=== PATIENT | female | born 1975 | race African-American/Black ===

== ENCOUNTER 2019-02-19 15:58 | Emergency (ER) | payer OTHER ==
[~2019-02-19] VITALS: Ht 158.8 cm; Wt 96.2 kg
[2019-02-19] MEDS ORDERED: IV NORMAL SALINE 1000ML BAG 1,000 ML IV SCH (17:43)
[2019-02-19] MEDS ORDERED: fentaNYL PF VIAL 100 MCG/2 ML VIAL IV ONE (17:45)
[2019-02-19] MEDS ORDERED: ONDANSETRON PF 4 MG/2 ML VIAL. IV ONE (17:45)
[2019-02-19] MEDS ORDERED: FAMOTIDINE 20 MG/2 ML VIAL IVP ONE (17:45)
--- NOTE | 2019-02-19 17:46 | PHYS DOC ---
Past Medical History Past Medical History: Diabetes-Type II, Hypertension, Other Additional Past Medical Histor: uterine fribroids (MICHELL HERRERA APRN) Past Surgical History: Cholecystectomy, , Other Additional Past Surgical Histo: uterine fibroid removal (MICHELL HERRERA APRN) Alcohol Use: Occasionally Drug Use: None (MICHELL HERRERA APRN) Adult General Chief Complaint Chief Complaint: ABDOMINAL PAIN HPI HPI Patient is a 43 year old who presents with 1 week of epigastric pain that is sharp and radiating to the left upper abdomen. Patient states that she also has nausea. Patient states she has not vomited or had diarrhea. She also denies fevers. Patient states that today she ate oatmeal and some garcia kept it down. Patient states then she tried a banana and a peanut butter and jelly sandwich and stated it made her feel worse. She rates her pain an 8 out of 10 and states she has not taken anything for this pain. (MICHELL HERRERA APRN) Review of Systems Review of Systems Constitutional: Denies fever or chills [] Eyes: Denies change in visual acuity, redness, or eye pain [] HENT: Denies nasal congestion or sore throat [] Respiratory: Denies cough or shortness of breath [] Cardiovascular: No additional information not addressed in HPI [] GI: epigastric and LUQ abdominal pain, nausea, vomiting, bloody stools or diarrhea [] : Denies dysuria or hematuria [] Musculoskeletal: Denies back pain or joint pain [] Integument: Denies rash or skin lesions [] Neurologic: Denies headache, focal weakness or sensory changes [] Endocrine: Denies polyuria or polydipsia [] All other systems were reviewed and found to be within normal limits, except as documented in this note. (MICHELL HERRERA APRN) Current Medications Current Medications Current Medications Medications (Trade) Dose Ordered Sig/Aleksandr Start Time Stop Time Status Last Admin Dose Admin Famotidine (Pepcid Vial) 20 mg 1X ONCE 02/19/19 17:45 02/19/19 17:51 DC 02/19/19 19:04 20 MG Fentanyl Citrate (Fentanyl 2ml Vial) 50 mcg 1X ONCE 02/19/19 17:45 02/19/19 17:51 DC 02/19/19 19:05 50 MCG Info (CONTRAST GIVEN -- Rx MONITORING) 1 each PRN DAILY PRN 02/19/19 19:15 02/21/19 19:14 Iohexol (Omnipaque 300 Mg/ml) 75 ml 1X ONCE 02/19/19 19:15 02/19/19 19:16 DC 02/19/19 20:34 75 ML Ondansetron HCl (Zofran) 4 mg 1X ONCE 02/19/19 17:45 02/19/19 17:51 DC 02/19/19 19:04 4 MG Sodium Chloride 1,000 ml @ 1,000 mls/hr Q1H 02/19/19 17:43 02/19/19 18:42 DC 02/19/19 19:05 1,000 MLS/HR (IVETTE HANEY APRN) Allergies Allergies Allergies Coded Allergies Type Severity Reaction Last Updated Verified No Known Drug Allergies 02/19/19 No (IVETTE HANEY APRN) Physical Exam Physical Exam Constitutional: Well developed, well nourished, no acute distress, non-toxic appearance. [] HENT: Normocephalic, atraumatic, bilateral external ears normal, oropharynx moist, no oral exudates, nose normal. [] Eyes: PERRLA, EOMI, conjunctiva normal, no discharge. [] Neck: Normal range of motion, no tenderness, supple, no stridor. [] Cardiovascular:Heart rate regular rhythm, no murmur [] Lungs & Thorax: Bilateral breath sounds clear to auscultation [] Abdomen: Bowel sounds normal, soft, no tenderness, no masses, no pulsatile masses. [] Skin: Warm, dry, no erythema, no rash. [] Back: No tenderness, no CVA tenderness. [] Extremities: No tenderness, no cyanosis, no clubbing, ROM intact, no edema. [] Neurologic: Alert and oriented X 3, normal motor function, normal sensory function, no focal deficits noted. [] Psychologic: Affect normal, judgement normal, mood normal. [] (MICHELL HERRERA FLATWORK FINISHER HAND) Current Patient Data Vital Signs Vital Signs Date Time Temp Pulse Resp B/P (MAP) Pulse Ox O2 Delivery O2 Flow Rate FiO2 02/19/19 20:22 91 18 163/106 (125) 97 Room Air 02/19/19 16:30 99.1 99.1 (IVETTE HANEY APRN) Lab Values Laboratory Tests Test 02/19/19 18:13 02/19/19 18:50 Urine Collection Type Unknown Urine Color Yellow Urine Clarity Clear Urine pH 5.0 Urine Specific [place] 1.020 Urine Protein Negative mg/dL (NEG-TRACE) Urine Glucose (UA) Negative mg/dL (NEG) Urine Ketones (Stick) Negative mg/dL (NEG) Urine Blood Large (NEG) Urine Nitrite Negative (NEG) Urine Bilirubin Negative (NEG) Urine Urobilinogen Dipstick 1.0 mg/dL (0.2 mg/dL) Urine Leukocyte Esterase Negative (NEG) Urine RBC Occ /HPF (0-2) Urine WBC Occ /HPF (0-4) Urine Squamous Epithelial Cells Few /LPF Urine Bacteria 0 /HPF (0-FEW) Urine Mucus Mod /LPF Urine Test Negative (NEG) White Blood Count 4.8 x10^3/uL (4.0-11.0) Red Blood Count 5.44 x10^6/uL (3.50-5.40) H Hemoglobin 12.0 g/dL (12.0-15.5) Hematocrit 37.5 % (36.0-47.0) Mean Corpuscular Volume 69 fL (79-100) L Mean Corpuscular Hemoglobin 22 pg (25-35) L Mean Corpuscular Hemoglobin Concent 32 g/dL (31-37) Red Cell Distribution Width 15.6 % (11.5-14.5) H Platelet Count 193 x10^3/uL (140-400) Neutrophils (%) (Auto) 60 % (31-73) Lymphocytes (%) (Auto) 29 % (24-48) Monocytes (%) (Auto) 9 % (0-9) Eosinophils (%) (Auto) 2 % (0-3) Basophils (%) (Auto) 1 % (0-3) Neutrophils # (Auto) 2.8 x10^3/uL (1.8-7.7) Lymphocytes # (Auto) 1.4 x10^3/uL (1.0-4.8) Monocytes # (Auto) 0.4 x10^3/uL (0.0-1.1) Eosinophils # (Auto) 0.1 x10^3/uL (0.0-0.7) Basophils # (Auto) 0.0 x10^3/uL (0.0-0.2) Platelet Estimate Adequate (ADEQUATE) Hypochromasia Slight Anisocytosis Slight Microcytosis Mod Sodium Level 138 mmol/L (136-145) Potassium Level 3.5 mmol/L (3.5-5.1) Chloride Level 102 mmol/L (98-107) Carbon Dioxide Level 27 mmol/L (21-32) Anion Gap 9 (6-14) Blood Urea Nitrogen 9 mg/dL (7-20) Creatinine 0.6 mg/dL (0.6-1.0) Estimated GFR (Cockcroft-Gault) 131.4 BUN/Creatinine Ratio 15 (6-20) Glucose Level 122 mg/dL (70-99) H Calcium Level 9.0 mg/dL (8.5-10.1) Total Bilirubin 0.3 mg/dL (0.2-1.0) Aspartate Amino Transferase (AST) 17 U/L (15-37) Alanine Aminotransferase (ALT) 27 U/L (14-59) Alkaline Phosphatase 65 U/L (46-116) Troponin I Quantitative < 0.017 ng/mL (0.000-0.055) Total Protein 7.6 g/dL (6.4-8.2) Albumin 3.5 g/dL (3.4-5.0) Albumin/Globulin Ratio 0.9 (1.0-1.7) L Lipase 65 U/L (73-393) L Laboratory Tests 02/19/19 18:50 Laboratory Tests 02/19/19 18:50 (IVETTE HANEY APRN) Lab Values Laboratory Tests Test 02/19/19 18:13 02/19/19 18:50 Urine Collection Type Unknown Urine Color Yellow Urine Clarity Clear Urine pH 5.0 Urine Specific [place] 1.020 Urine Protein Negative mg/dL (NEG-TRACE) Urine Glucose (UA) Negative mg/dL (NEG) Urine Ketones (Stick) Negative mg/dL (NEG) Urine Blood Large (NEG) Urine Nitrite Negative (NEG) Urine Bilirubin Negative (NEG) Urine Urobilinogen Dipstick 1.0 mg/dL (0.2 mg/dL) Urine Leukocyte Esterase Negative (NEG) Urine RBC Occ /HPF (0-2) Urine WBC Occ /HPF (0-4) Urine Squamous Epithelial Cells Few /LPF Urine Bacteria 0 /HPF (0-FEW) Urine Mucus Mod /LPF White Blood Count 4.8 x10^3/uL (4.0-11.0) Red Blood Count 5.44 x10^6/uL (3.50-5.40) H Hemoglobin 12.0 g/dL (12.0-15.5) Hematocrit 37.5 % (36.0-47.0) Mean Corpuscular Volume 69 fL (79-100) L Mean Corpuscular Hemoglobin 22 pg (25-35) L Mean Corpuscular Hemoglobin Concent 32 g/dL (31-37) Red Cell Distribution Width 15.6 % (11.5-14.5) H Platelet Count 193 x10^3/uL (140-400) Neutrophils (%) (Auto) 60 % (31-73) Lymphocytes (%) (Auto) 29 % (24-48) Monocytes (%) (Auto) 9 % (0-9) Eosinophils (%) (Auto) 2 % (0-3) Basophils (%) (Auto) 1 % (0-3) Neutrophils # (Auto) 2.8 x10^3/uL (1.8-7.7) Lymphocytes # (Auto) 1.4 x10^3/uL (1.0-4.8) Monocytes # (Auto) 0.4 x10^3/uL (0.0-1.1) Eosinophils # (Auto) 0.1 x10^3/uL (0.0-0.7) Basophils # (Auto) 0.0 x10^3/uL (0.0-0.2) Platelet Estimate Pending Sodium Level 138 mmol/L (136-145) Potassium Level 3.5 mmol/L (3.5-5.1) Chloride Level 102 mmol/L (98-107) Carbon Dioxide Level 27 mmol/L (21-32) Anion Gap 9 (6-14) Blood Urea Nitrogen 9 mg/dL (7-20) Creatinine 0.6 mg/dL (0.6-1.0) Estimated GFR (Cockcroft-Gault) 131.4 BUN/Creatinine Ratio 15 (6-20) Glucose Level 122 mg/dL (70-99) H Calcium Level 9.0 mg/dL (8.5-10.1) Total Bilirubin 0.3 mg/dL (0.2-1.0) Aspartate Amino Transferase (AST) 17 U/L (15-37) Alanine Aminotransferase (ALT) 27 U/L (14-59) Alkaline Phosphatase 65 U/L (46-116) Troponin I Quantitative < 0.017 ng/mL (0.000-0.055) Total Protein 7.6 g/dL (6.4-8.2) Albumin 3.5 g/dL (3.4-5.0) Albumin/Globulin Ratio 0.9 (1.0-1.7) L Lipase 65 U/L (73-393) L Laboratory Tests 02/19/19 18:50 Laboratory Tests 02/19/19 18:50 (MICHELL HERRERA APRN) EKG EKG Sinus Rhythm and no STEMI[] Interpretation Time: 1828 and no STEMI (MICHELL HERRERA FLATWORK FINISHER HAND) Radiology/Procedures Radiology/Procedures [] [facility] Radiology/Procedures PROCEDURE: CT ABD PELV W/ IV CONTRST ONLY CT abdomen and pelvis with contrast PQRS statement: CT scans at this facility use dose reduction including either automated exposure control, iterative reconstructions, and /or weight based radiation dosing via mA and kV modification when appropriate to reduce radiation dose to as low as reasonably achievable. HISTORY: Abdominal pain and nausea. TECHNIQUE: Helical CT imaging abdomen and pelvis with 75 mL Omnipaque 300 intravenous contrast. Abdomen findings: 3 mm nodule or lymph node right major fissure image 2 lateral of which is linear atelectasis or scarring. Mild cardiomegaly. Cholecystectomy. Kidneys, adrenal glands, pancreas, liver, spleen unremarkable. 2 cm small accessory spleen. Appendix is negative. No obstruction or inflammatory changes in GI tract. No abdominal fluid or adenopathy. Bones unremarkable. Pelvis findings: Enlarged uterus with numerous masses several of which are calcified most typical of a fibroid uterus. Fallopian tubal ligation clips. Ovaries somewhat obscured by surrounding bowel loops. Enlarged uterus extends the lower abdomen. Bladder, rectum and bones are unremarkable. No pelvic fluid or adenopathy. IMPRESSION: 1. No acute process. Appendix is negative. 2. Enlarged fibroid uterus. (IVETTE HANEY FLATWORK FINISHER HAND) Impressions: [facility] [address] [place] [address] IMAGING REPORT Signed PATIENT: CAMDEN ZAMUDIOCOUNT: [id number] : 1975 LOCATION: ER AGE: 43 SEX: F EXAM STATUS: REG ER ORD. PHYSICIAN: MICHELL HERRERA APRN REASON: epigastric pain PROCEDURE: PORTABLE CHEST 1V PORTABLE CHEST 1V Clinical History: Epigastric pain Technique: AP view of the chest was obtained at 02/19/2019 5:43 PM. Comparison: None. Findings: The cardiomediastinal silhouette is normal. The pulmonary vasculature is normal. The lungs and pleural margins are clear. Impression: No evidence of an acute cardiopulmonary process. Electronically signed by: Darin Ulrich III, MD (02/19/2019 6:26 PM) [id number] DICTATED and SIGNED BY: DARIN ULRICH III, MD DATE: 02/19/191825 (MICHELL HERRERA APRN) Course & Med Decision Making Course & Med Decision Making Skin is pink warm and dry. No extremity edema. Abdomen is soft but tender to epi gastric and left upper quadrant. Patient does have some low mid quadrant tenderness but states that she just started her menstrual period and she has fibroids. She denies dysuria symptoms, chest pain, shortness of air, dizziness, headache, numbness or tingling, visual changes, weaknesses, back pain. No CVA tenderness. Lungs are clear to auscultation all lobes. Alert and oriented. Ambulatory with a steady gait. Denies abnormal vaginal discharge. Lab work unremarkable. Urinalysis shows no infection. Chest x ray normal. 1937: Patient reported off to Shola BEDOLLA (MICHELL HERRERA APRN) Course & Med Decision Making 1937- Report received from Michell BEDOLLA. PT's CT is unremarkable. Pt reports feeling better at this time. Prescription written for Zofran PRN nausea. Follow up with PCP in 1-2 days. Recommend bland diet. Patient verbalized an understanding of home care, medications, follow-up, and return to ED instructions and was in agreement with the plan of care. (IVETTE HANEY APRN) Stanislaw Disclaimer Dragon Disclaimer This electronic medical record was generated, in whole or in part, using a voice recognition dictation system. (MICHELL HERRERA APRN) Departure Departure Impression: Primary Impression: Abdominal pain Additional Impression: Nausea Disposition: HOME, SELF-CARE Condition: STABLE Referrals: NO PCP (PCP) Patient Instructions: Abdominal Pain (Nonspecific), Nausea, Adult, [id number] Additional Instructions: Fill prescriptions and use them as directed. Recommend bland foods such as bananas, rice, applesauce, and dry toast, then advance diet as tolerated. Follow-up with your primary care doctor in the next 1-2 days. Return to the emergency room if your symptoms worsen. Scripts Ondansetron (ONDANSETRON ODT) 4 Mg Tab.rapdis 1 TAB PO PRN Q6-8HRS PRN for NAUSEA/VOMITING for 4 Days, #16 TAB 0 Refills Prov: IVETTE HANEY APRN 02/19/19 Problem Qualifiers Primary Impression: Abdominal pain Abdominal location: left upper quadrant Qualified Codes: R10.12 - Left upper quadrant pain MICHELL HERRERA APRN Feb 19, 2019 17:46 IVETTE HANEY APRN Feb 19, 2019 21:16
[2019-02-19 18:28] LABS: BILIRUBIN,URINE NEGATIVE (NEG); CLARITY,URINE CLEAR; COLOR,URINE YELLOW; NITRITE,URINE NEGATIVE (NEG); PROTEIN,URINE NEGATIVE (NEG-TRACE)
[2019-02-19 18:36] LABS: RBC,URINE OCC /HPF (0-2); WBC,URINE OCC /HPF (0-4)
[2019-02-19 18:37] LABS: BACTERIA,URINE 0 /HPF (0-FEW); SQUAMOUS EPITHELIAL CELL,UR FEW /LPF
--- NOTE | 2019-02-19 18:42 | RAD ---
PORTABLE CHEST 1V Clinical History: Epigastric pain Technique: AP view of the chest was obtained at 02/19/2019 5:43 PM. Comparison: None. Findings: The cardiomediastinal silhouette is normal. The pulmonary vasculature is normal. The lungs and pleural margins are clear. Impression: No evidence of an acute cardiopulmonary process. Electronically signed by: John Agosto III, MD (02/19/2019 6:26 PM) [id number]
[2019-02-19 19:10] LABS: CREATININE 0.6 mg/dL (0.6-1.0); GFR 131.4; POTASSIUM 3.5 mmol/L (3.5-5.1)
[2019-02-19 19:13] LABS: BASO % 1 % (0-3); EOS # 0.1 x10^3/uL (0.0-0.7); EOS % 2 % (0-3); HEMATOCRIT 37.5 % (36.0-47.0); LYMPH # 1.4 x10^3/uL (1.0-4.8); LYMPH % 29 % (24-48); MEAN CORPUSCULAR HEMOGLOBIN 22 pg (25-35); MEAN CORPUSCULAR HGB CONC 32 g/dL (31-37); MEAN CORPUSCULAR VOLUME 69 fL (79-100); MONO # 0.4 x10^3/uL (0.0-1.1); MONO % 9 % (0-9); NEUT # 2.8 x10^3/uL (1.8-7.7); NEUT % 60 % (31-73); PLATELET COUNT 193 x10^3/uL (140-400); RED BLOOD COUNT 5.44 x10^6/uL (3.50-5.40); RED CELL DISTRIBUTION WIDTH 15.6 % (11.5-14.5); WHITE BLOOD COUNT 4.8 x10^3/uL (4.0-11.0)
[2019-02-19] MEDS ORDERED: CONTRAST GIVEN. MC PRN (19:15)
[2019-02-19] MEDS ORDERED: IOHEXOL 300 MG/ML 100ML VIAL. IV ONE (19:15)
[2019-02-19 19:16] LABS: ALBUMIN 3.5 g/dL (3.4-5.0); ALBUMIN/GLOBULIN RATIO 0.9 (1.0-1.7); TOTAL BILIRUBIN 0.3 mg/dL (0.2-1.0); TOTAL PROTEIN 7.6 g/dL (6.4-8.2)
[2019-02-19 20:27] LABS: U PREG PATIENT NEGATIVE (NEG)
[2019-02-19 20:40] LABS: ANISOCYTOSIS SLIGHT; HYPOCHROMIA SLIGHT; MICROCYTOSIS MOD; PLT ESTIMATE ADEQUATE (ADEQUATE)
--- NOTE | 2019-02-19 21:11 | RAD ---
CT abdomen and pelvis with contrast PQRS statement: CT scans at this facility use dose reduction including either automated exposure control, iterative reconstructions, and /or weight based radiation dosing via mA and kV modification when appropriate to reduce radiation dose to as low as reasonably achievable. HISTORY: Abdominal pain and nausea. TECHNIQUE: Helical CT imaging abdomen and pelvis with 75 mL Omnipaque 300 intravenous contrast. Abdomen findings: 3 mm nodule or lymph node right major fissure image 2 lateral of which is linear atelectasis or scarring. Mild cardiomegaly. Cholecystectomy. Kidneys, adrenal glands, pancreas, liver, spleen unremarkable. 2 cm small accessory spleen. Appendix is negative. No obstruction or inflammatory changes in GI tract. No abdominal fluid or adenopathy. Bones unremarkable. Pelvis findings: Enlarged uterus with numerous masses several of which are calcified most typical of a fibroid uterus. Fallopian tubal ligation clips. Ovaries somewhat obscured by surrounding bowel loops. Enlarged uterus extends the lower abdomen. Bladder, rectum and bones are unremarkable. No pelvic fluid or adenopathy. IMPRESSION: 1. No acute process. Appendix is negative. 2. Enlarged fibroid uterus. Electronically signed by: Adan Bailey MD (02/19/2019 9:08 PM) [id number]
[2019-02-19] MEDS ORDERED: ONDA4TAB12 PO (21:27)
[2019-02-19 21:29] VITALS: BP 155/95
--- NOTE | 2019-02-20 06:49 | EKG ---
[facility] [address] [place] [address] Test Date: 2019-02-19 Test Time: 18:29:30 Pat Name: CAMDEN ZAMUDIO Department: Room: Gender: F Photocopier Technician: : 1975 Requested By: SUAD HERRERA Order Number: [id number] Reading MD: Measurements Intervals [place] Rate: 70 P: 27 [place]: 174 QRS: -24 QRSD: 96 T: -11 QT: 374 QTc: 406 Interpretive Statements SINUS RHYTHM LEFTWARD AXIS T ABNORMALITY IN INFERIOR LEADS ABNORMAL ECG No previous ECG available for comparison
== END 2019-02-19 21:31 | disposition home or self-care (01) ==
LOC: ER 15:58
DX: R10.12 Left upper quadrant pain (principal); R10.13 Epigastric pain; R11.2 Nausea with vomiting, unspecified; R19.7 Diarrhea, unspecified; E11.9 Type 2 diabetes mellitus without complications; I10 Essential (primary) hypertension; Z90.49 Acquired absence of other specified parts of digestive tract; Z98.890 Other specified postprocedural states
CPT/HCPCS: 36415; 71045; 74177; 80053; 81001; 81025; 83690; 84484; 85025; 93005; 96361; 96374; 96375; 99285; J2405; J3010; J3490; J7030; Q9967